=== PATIENT | male | born 1995 | race Caucasian/White ===

== ENCOUNTER 2017-11-22 21:55 | Emergency (ER) | payer BC ==
[~2017-11-22] VITALS: Ht 175.3 cm; Wt 124.4 kg
[2017-11-22 21:57] VITALS: TEMP 37; Ht 175.3 cm; Wt 124.4 kg
--- NOTE | 2017-11-22 22:22 | DIAGNOSTIC IMAGING REPORT ---
R ANKLE MIN 3 VIEWS ROUTINE CLINICAL HISTORY: 22 years-old Male presenting with R ankle pain rolled ankle pain on lateral aspect severe swelling. TECHNIQUE: Frontal, mortise, and lateral views of the right ankle were obtained. COMPARISON: None. FINDINGS: Ankle mortise intact. No acute fracture or malalignment. No advanced degenerative change. Diffuse soft tissue swelling evident allowing for prominent subcutaneous fat. Swelling appears greatest over the lateral malleolus. IMPRESSION: No acute osseous injury. Electronically signed by: Bryon Vergara M.D. 11/22/2017 10:21 PM Dictated Date/Time: 11/22/2017 10:20 PM
[2017-11-22] MEDS ORDERED: NAPR1TAB9 PO (22:28)
--- NOTE | 2017-11-22 22:33 | EMERGENCY ROOM VISIT NOTE ---
ED Visit Note First contact with patient: 22:00 CHIEF COMPLAINT: Ankle pain HISTORY OF PRESENT ILLNESS: This 22-year-old male patient presents to the emergency department 2 days after sustaining an injury to the right ankle and foot with a twisting, inversion motion when he was wrestling with a friend. The patient complains of pain along the outside of the ankle. The patient denies pain of the foot. The patient rates the pain as mild and 2/10. The patient is not able to bear weight on the foot. Constant pain, worse with movement, weight bearing, and the dependent position. No knee pain, the patient is able to move their toes. No numbness or weakness of the foot, no laceration. The patient has not had a previous fracture to this ankle. The patient has taken nothing for the pain. The patient denies any other injury. REVIEW OF SYSTEMS: A 6 system review of systems was completed with positives and pertinent negatives listed in the HPI. ALLERGIES: No known drug allergies MEDICATIONS: Reviewed PMH: Asthma SOCIAL HISTORY: He does not smoke, occasional EtOH use. He is a [employer] student PHYSICAL EXAM: Vital Signs: Reviewed Nurse's notes, vital signs stable. GENERAL : 22-year-old male, no acute distress, but appears in pain, well-developed, well -nourished. MENTAL STATUS: Alert, oriented to person place and time, and cooperative. MUSCULOSKELETAL: The right ankle is swollen and tender over the lateral malleolus, but the skin is intact and there is no ligamentous instability. There is significant edema diffusely over the ankle and foot. There is no fifth metatarsal tenderness. There is mild diffuse tenderness over the rest of the foot. There is no calf or tibia/fibular tenderness. There is no visual deformity. The foot and toes are warm and well-perfused. Dorsalis pedis pulse 2+. Sensation to pain and light touch is intact. Capillary refill less than 2 seconds. EMERGENCY DEPARTMENT COURSE: I examined the patient. . X-rays of the right ankle were reviewed Right ankle pain IMPRESSION: No acute osseous injury. Electronically signed by: Bryon Vergara M.D. 11/22/2017 10:21 PM A gel ankle splint was applied to the ankle under my direction and the position was satisfactory. Neurovascular status was rechecked and intact. The patient was instructed on the use of crutches. The patient was discharged home in good condition. DIAGNOSIS: Severe right ankle sprain DISCHARGE INSTRUCTIONS: Ice for 20 minute intervals over the next 48 hours Elevate the ankle above your heart as much as possible Ibuprofen 800 mg and/or Tylenol 1000 mg every 8 hours. You may also alternate these medications for more effective pain relief: Ibuprofen --4 HRS--> Tylenol --4 HRS--> ibuprofen --4 HRS--> Tylenol .... Keep the gel splint in place. Use crutches. No weightbearing on the right ankle. Please call the orthopedic doctor first thing tomorrow morning for a follow-up appointment. If you have difficulty getting an appointment, please call back to the emergency department and we can try to get the appointment for you Please do not hesitate to return to the emergency department with any new, worsening or concerning symptoms It was a pleasure participating in your care this evening This chart was completed in part utilizing [employer] Speech Voice Recognition software. Attempts were made to minimize the grammatical errors, random word insertions, pronoun errors and incomplete sentences. Any formal questions or concerns about the content, text or information contained within the body of this dictation should be directly addressed to the provider for clarification.
[2017-11-22 22:50] VITALS: BP 169/73; PULSE 80; O2SAT 97
== END 2017-11-22 22:54 | disposition home or self-care (01) ==
LOC: C.EDB 21:56 → C.EDC 22:54
DX: S93.401A Sprain of unspecified ligament of right ankle, initial encounter (principal); X50.9XXA Other and unspecified overexertion or strenuous movements or postures, initial encounter; J45.909 Unspecified asthma, uncomplicated